=== PATIENT | male | born 1955 | race African-American/Black ===

== ENCOUNTER 2017-06-28 06:45 | Day surgery (SDC) | payer OTHER ==
[2017-06-28] VITALS (10 sets, daily range): BP systolic 109–145; BP diastolic 72–90
[~2017-06-28] VITALS: Ht 177.8 cm; Wt 74.8 kg
[~2017-06-28 06:45] MED LIST: ATORVASTATIN CA20 MG ORAL; DULERA 200 MCG/13 GM IH; NORCO 10-325 T1 EACH ORAL; NORVASC5 MG ORAL; ceFAZolin sod 1gm in NS 55ml IVPB ONE; celeBREX 200mg Cap **SURGERY PATIENTS ONLY ORAL ONE; oxyCONTIN 20mg tab ORAL ONE
--- NOTE | 2017-06-28 07:42 | Pre-Procedure Note/Attestation ---
Pre-Procedure Note/Attestation Complete Prior to Procedure Planned Procedure: right Procedure Narrative: shoulder arthroscopy, sad Indications for Procedure Pre-Operative Diagnosis: right shoulder impingement, rct Attestation I attest that I discussed the nature of the procedure; its benefits; risks and complications; and alternatives (and the risks and benefits of such alternatives ), prior to the procedure, with the patient (or the patient's legal employment program representative). I attest that, if there was a reasonable possibility of needing a blood transfusion, the patient (or the patient's legal employment program representative) was given the [facility] standardized written summary, pursuant to the Pasha Shadi Blood Safety Act ([place] Health and Safety Code # 1645, as amended). I attest that I re-evaluated the patient just prior to the surgery and that there has been no change in the patient's H&P, except as documented below: CHERRIE TAPIA Jun 28, 2017 07:42
--- NOTE | 2017-06-28 07:43 | Operative Note - PDOC ---
Operative Note Operative Note Pre-op Diagnosis: right shoulder impingement, rct Procedure: right shoulder sad, rc debridement Post-op Diagnosis: same as pre-op plus Operative Findings: consistent w/pre-op dx studies Anesthesia: MAC Specimen: none Complications: none Condition: stable Estimated Blood Loss: none Implant(s) used?: No CHERRIE TAPIA Jun 28, 2017 07:43
[2017-06-28] MEDS ORDERED: HYDROmorphone 1mg/ml Carpuject SUBQ PRN (07:45)
[2017-06-28] MEDS ORDERED: Norco 5mg/325mg tab ORAL PRN ×2 (07:45→08:45)
[2017-06-28] MEDS ORDERED: Tylenol #3 tab (300mg/30mg) ORAL PRN (07:45)
[2017-06-28] MEDS ORDERED: D5 1/2NS 1,000 ML IV SCH (07:45)
[2017-06-28] MEDS ORDERED: celeBREX 200mg Cap **SURGERY PATIENTS ONLY ORAL ONE (08:24)
[2017-06-28] MEDS ORDERED: Ropivacaine 5mg/ml Vial 30ml INJ ONE (08:38)
[2017-06-28] MEDS ORDERED: EPINEPHrine 1mg/1ml Amp ONE (08:38)
[2017-06-28] MEDS ORDERED: Bupivacaine 0.25% Inj 30ml INJ ONE (08:38)
[2017-06-28] MEDS ORDERED: DiphenhydrAMINE 50mg/ml Inj IVP PRN (08:45)
[2017-06-28] MEDS ORDERED: LORazepam Inj 2mg/ml 1ml IV PRN (08:45)
[2017-06-28] MEDS ORDERED: LR 1000ml 1,000 ML IVLG SCH (08:45)
[2017-06-28] MEDS ORDERED: Midazolam 2mg/2ml Inj IVP PRN (08:45)
[2017-06-28] MEDS ORDERED: Hydromorphone 0.5mg/0.5ml inj IVP PRN (08:45)
[2017-06-28] MEDS ORDERED: fentaNYL 100 mcg/2 mL IV PRN (08:45)
[2017-06-28] MEDS ORDERED: Ketorolac 30mg Inj IV PRN ×2 (08:45)
[2017-06-28] MEDS ORDERED: HYDROcodone/Acetamin 7.5/325 tab ORAL PRN (08:45)
[2017-06-28] MEDS ORDERED: oxyCODONE HCL/Acetaminophen 5/325mg ORAL PRN (08:45)
[2017-06-28] MEDS ORDERED: Atropine Inj 1mg/10ml Syr IV PRN (08:45)
[2017-06-28] MEDS ORDERED: Labetalol 5mg/ml 20ml vial IV PRN (08:45)
--- NOTE | 2017-06-28 08:45 | Anethesia Preoperative Eval ---
Anesthesia Pre-op PMH/ROS General Date of Evaluation: Jun 28, 2017 Time of Evaluation: 08:53 Anesthesiologist: Lida ASA Score: ASA 3 Mallampati Score Class I : Soft palate, uvula, fauces, pillars visible Class II: Soft palate, uvula, fauces visible Class III: Soft palate, base of uvula visible Class IV: Only hard plate visible Mallampati Classification: Class II Surgeon: Elieser Diagnosis: R Shoulder Pain Surgical Procedure: R Shoulder Arthroscopy Anesthesia History: none Social History: current smoker Family History: no anesthesia problems Allergies: Coded Allergies: No Known Allergies (Unverified , 06/27/17) Medications: see eMAR Past Medical History Cardiovascular: Reports: HTN Pulmonary: Reports: COPD Musculoskeletal/Integumentary: Reports: OA Anesthesia Pre-op Phys. Exam Physician Exam Last Vital Signs Date Time Temp Pulse Resp B/P (MAP) Pulse Ox O2 Delivery O2 Flow Rate FiO2 06/28/17 08:03 96.8 77 20 130/88 100 Room Air 96.8 Constitutional: NAD Neurologic: CN 2-12 intact Cardiovascular: RRR Respiratory: CTA Gastrointestinal: S/NT/ND Airway Exam Mallampati Score: Class II MO: full ROM: limited Teeth: missing Anesthesia Pre-op A/P Risk Assessment & Plan Assessment: ASA 3 Plan: GA, BIS Status Change Before Surgery: No Pre-Antibiotics Dru Grams Ancef IV Given Within 1 Hr of Incision: Yes Time Given: 09:21 Chuck Hilton MD Jun 28, 2017 08:45
--- NOTE | 2017-06-28 08:46 | Immediate Post-Op Evaluation ---
Immediate Post-Op Evalulation Immediate Post-Op Evalulation Procedure: R Shoulder Arthroscopy Date of Evaluation: Jun 28, 2017 Time of Evaluation: 10:45 IV Fluids: 800 LR Blood Products: 0 Estimated Blood Loss: 10 Urinary Output: 0 Blood Pressure Systolic: 121 Blood Pressure Diastolic: 72 Pulse Rate: 80 Respiratory Rate: 16 O2 Sat by Pulse Oximetry: 100 Temperature (Fahrenheit): 97.1 Pain Score (1-10): 1 Nausea: No Vomiting: No Complications 0 Patient Status: awake, reacts, patent, none Hydration Status: adequate Dru Grams Ancef IV Given Within 1 Hr of Incision: Yes Time Given: 09:21 Chuck Hilton MD Jun 28, 2017 08:46
--- NOTE | 2017-06-28 08:47 | 48 Hour Post Anesthesia Eval ---
Post Anesthesia Evaluation Procedure: R Shoulder Arthroscopy Date of Evaluation: Jun 28, 2017 Time of Evaluation: 12:03 Blood Pressure Systolic: 132 0: 98 Pulse Rate: 67 Respiratory Rate: 18 Temperature (Fahrenheit): 98.3 O2 Sat by Pulse Oximetry: 100 Airway: patent Nausea: No Vomiting: No Pain Intensity: 1 Hydration Status: adequate Cardiopulmonary Status: Stable Mental Status/LOC: patient returned to baseline Follow-up Care/Observations: 0 Post-Anesthesia Complications: 0 Follow-up care needed: ready to discharge Chuck Hilton MD Jun 28, 2017 08:47
[2017-06-28] MEDS ORDERED: Propofol 200mg/20ml IV ONE (09:00)
[2017-06-28] MEDS ORDERED: Alfentanil 2ml Inj ONE (09:00)
[2017-06-28] MEDS ORDERED: LR 1000ml ONE (09:00)
[2017-06-28] MEDS ORDERED: Lidocaine 1% MPF 10mg/ml 5ml ONE (09:00)
[2017-06-28] MEDS ORDERED: Dexamethasone 4mg/ml vial ONE (09:00)
[2017-06-28] MEDS ORDERED: Midazolam 2mg/2ml Inj ONE (09:00)
[2017-06-28] MEDS ORDERED: NS Irrig 2000ml IRRIG ONE (09:00)
--- NOTE | 2017-06-28 16:30 | Operative Note - Dictated ---
DATE OF OPERATION: 06/28/2017 PREOPERATIVE DIAGNOSES: 1. Right shoulder AC separation. 2. Right shoulder subscap/supraspinatus rotator cuff tear. 3. Right shoulder biceps tenosynovitis. 4. Impingement syndrome. POSTOPERATIVE DIAGNOSES: 1. Right shoulder AC separation. 2. Right shoulder subscap/supraspinatus rotator cuff tear. 3. Right shoulder biceps tenosynovitis. 4. Impingement syndrome. PROCEDURES: 1. Right shoulder diagnostic arthroscopy, intra-articular debridements. 2. Right shoulder arthroscopic subacromial decompression bursectomy. 3. Right shoulder rotator cuff repair. SURGEON: Dilip Mon M.D. ANESTHESIA: MAC with interscalene. INDICATION FOR PROCEDURE: The patient is a 62-year-old gentleman, who has had a significant injury to his right shoulder. He failed conservative treatment and elected to undergo right shoulder diagnostic arthroscopy, possible subacromial decompression bursectomy, rotator cuff repair based on the intraoperative findings. Risks, limitations, expectations, and complications of procedure were discussed in detail. All questions addressed. DESCRIPTION OF PROCEDURE: An informed consent was obtained. The patient was brought to the operating room where the patient was placed under interscalene general anesthesia. The patient was then carefully placed in beach-chair position. Right shoulder was prepped and draped in sterile manner. Time-out was performed. Portal sites were marked and injected with 0.25% Marcaine with epinephrine. Inferolateral stab incision was then made. Trocar was introduced into the glenohumeral joint. There was mild chondral damage in the inferior aspect of the glenoid. The anterior labrum appeared to be intact. The rotator interval was entered. The biceps tendon was intact. There was mild chondral damage in the inferior aspect of the glenoid. The anterior labrum appeared to be intact. The biceps tendon was subluxed into the shoulder and had some tenosynovitis, but no gross tearing. The undersurface of the supraspinatus had a partial tear. The anteromedial portal was established and an intra-articular debridement of the rotator cuff was performed. Once that was completed, the camera was placed in the subacromial space. There was acromial spur was identified. Acromioplasty was started from lateral to medial and completed from posterior to anterior. Once that was done, the bursectomy was carried out in the posterior axillary pouch. Once that was completed, the bursal side of the rotator cuff was evaluated. There was a tear along the rotator interval along the superior margin of the subscapularis. Given the rent along the supraspinatus/subscap through the rotator interval, two margin-convergence stitches were then placed to close down the rotator interval. Once that was done, the camera was removed. Portal sites were closed with 3-0 Monocryl sutures. Steri-Strips and a sterile dressing were applied. The patient was awoken and taken to recovery room with stable vital signs. ESTIMATED BLOOD LOSS: None. COMPLICATION: None. SPECIMENS: None. IMPLANTS: None. Dilip Mon M.D. DR: Elaina JOB#: [id number] CC: PETE
== END 2017-06-28 12:30 | disposition home or self-care (01) ==
LOC: SUR 06:45
DX: S43.101A Unspecified dislocation of right acromioclavicular joint, initial encounter (principal); M75.101 Unspecified rotator cuff tear or rupture of right shoulder, not specified as traumatic; M75.21 Bicipital tendinitis, right shoulder; M75.41 Impingement syndrome of right shoulder; X58.XXXA Exposure to other specified factors, initial encounter; Y93.9 Activity, unspecified; Y92.9 Unspecified place or not applicable; I10 Essential (primary) hypertension; J44.9 Chronic obstructive pulmonary disease, unspecified; M19.90 Unspecified osteoarthritis, unspecified site; F17.200 Nicotine dependence, unspecified, uncomplicated
CPT/HCPCS: 29823; 29826; 29827; J0171; J0690; J1100; J2250; J2405; J2704; J2795; J3490; J7120; 94003; 94150; C1713

== ENCOUNTER 2017-12-27 11:54 | Day surgery (SDC) | payer OTHER ==
--- NOTE | 2017-11-28 07:17 | Operative Note - PDOC ---
Operative Note Operative Note Pre-op Diagnosis: left ankle internal derangment Procedure: see op report Post-op Diagnosis: same as pre-op plus Operative Findings: consistent w/pre-op dx studies Anesthesia: MAC Specimen: none Complications: none Condition: stable Estimated Blood Loss: none Implant(s) used?: No Dilip Mon MD Nov 28, 2017 07:17
--- NOTE | 2017-11-28 07:17 | Pre-Procedure Note/Attestation ---
Pre-Procedure Note/Attestation Complete Prior to Procedure Planned Procedure: left Procedure Narrative: ankle arthroscopy, possible synovectomy Indications for Procedure Pre-Operative Diagnosis: left ankle internal derangment Attestation I attest that I discussed the nature of the procedure; its benefits; risks and complications; and alternatives (and the risks and benefits of such alternatives ), prior to the procedure, with the patient (or the patient's legal provider service representative). I attest that, if there was a reasonable possibility of needing a blood transfusion, the patient (or the patient's legal provider service representative) was given the [facility] standardized written summary, pursuant to the Pasha Shadi Blood Safety Act ([place] Health and Safety Code # 1645, as amended). I attest that I re-evaluated the patient just prior to the surgery and that there has been no change in the patient's H&P, except as documented below: Dilip Mon MD Nov 28, 2017 07:17
--- NOTE | 2017-12-13 07:24 | Pre-Procedure Note/Attestation ---
Pre-Procedure Note/Attestation Complete Prior to Procedure Planned Procedure: left Procedure Narrative: ankle arthroscopy, synovectomy Indications for Procedure Pre-Operative Diagnosis: left ankle internal derangment Attestation I attest that I discussed the nature of the procedure; its benefits; risks and complications; and alternatives (and the risks and benefits of such alternatives ), prior to the procedure, with the patient (or the patient's legal indirect sales representative). I attest that, if there was a reasonable possibility of needing a blood transfusion, the patient (or the patient's legal indirect sales representative) was given the [facility] standardized written summary, pursuant to the Pasha Newborn Blood Safety Act ([place] Health and Safety Code # 1645, as amended). I attest that I re-evaluated the patient just prior to the surgery and that there has been no change in the patient's H&P, except as documented below: Dilip Mon MD Dec 13, 2017 07:24
--- NOTE | 2017-12-13 07:24 | Operative Note - PDOC ---
Operative Note Operative Note Pre-op Diagnosis: left ankle internal derangment Procedure: see op report Post-op Diagnosis: same as pre-op plus Operative Findings: consistent w/pre-op dx studies Anesthesia: MAC Specimen: none Complications: none Condition: stable Estimated Blood Loss: none Implant(s) used?: No Dilip Mon MD Dec 13, 2017 07:24
[~2017-12-27] VITALS: Ht 177.8 cm; Wt 77.1 kg
[2017-12-27] VITALS (9 sets, daily range): BP systolic 135–163; BP diastolic 76–98
[~2017-12-27 11:54] MED LIST changes: +D5 1/2NS 1,000 ML IV SCH; +HYDROmorphone 1mg/ml Carpuject SUBQ PRN; +Ketorolac 30mg Inj ONE; +Lidocaine 1% MPF 10mg/ml 5ml ONE; +MELOXICAM15 MG PO; +Midazolam 2mg/2ml Inj ONE; +Norco 5mg/325mg tab ORAL PRN; +Propofol 200mg/20ml IV ONE; +TAMSULOSIN HCL0.4 MG ORAL; +Tylenol #3 tab (300mg/30mg) ORAL PRN; +ceFAZolin 1gm in D5W 55ml IVP ONE; +ceFAZolin 1gm in D5W 55ml IVP SCH; -ceFAZolin sod 1gm in NS 55ml IVPB ONE; +celeBREX 200mg Cap **SURGERY PATIENTS ONLY ORAL SCH; +fentaNYL 100 mcg/2 mL IV ONE; +oxyCONTIN 20mg tab ORAL SCH
[2017-12-27] MEDS ORDERED: oxyCONTIN 20mg tab ORAL ONE (12:28)
[2017-12-27] MEDS ORDERED: celeBREX 200mg Cap **SURGERY PATIENTS ONLY ORAL ONE (12:28)
[2017-12-27] MEDS ORDERED: Duramorph PF 5mg/10ml amp ONE (13:32)
[2017-12-27] MEDS ORDERED: Bupivacaine 0.5% Inj 30 ml vial INJ ONE ×2 (13:33→14:20)
[2017-12-27] MEDS ORDERED: Kenalog-40 1ml Vial ONE (13:33)
[2017-12-27] MEDS ORDERED: Lidocaine 1% 10mg/ml/EPI 0.01mg/ml 50ml INJ ONE (13:33)
[2017-12-27] MEDS ORDERED: Ketorolac 30mg Inj ONE (13:33)
--- NOTE | 2017-12-27 13:39 | Operative Note - PDOC ---
Operative Note Operative Note Pre-op Diagnosis: left ankle internal derangment Procedure: see op report Post-op Diagnosis: same as pre-op plus Operative Findings: consistent w/pre-op dx studies Anesthesia: MAC Specimen: none Complications: none Condition: stable Estimated Blood Loss: none Dilip Mon MD Dec 27, 2017 13:39
--- NOTE | 2017-12-27 13:39 | Pre-Procedure Note/Attestation ---
Pre-Procedure Note/Attestation Complete Prior to Procedure Planned Procedure: left Procedure Narrative: ankle arthroscopy, possible synovectomy, chondraplasty Indications for Procedure Pre-Operative Diagnosis: left ankle internal derangment Attestation I attest that I discussed the nature of the procedure; its benefits; risks and complications; and alternatives (and the risks and benefits of such alternatives ), prior to the procedure, with the patient (or the patient's legal surgical device sales representative). I attest that, if there was a reasonable possibility of needing a blood transfusion, the patient (or the patient's legal surgical device sales representative) was given the [facility] standardized written summary, pursuant to the Pasha Shadi Blood Safety Act ([place] Health and Safety Code # 1645, as amended). I attest that I re-evaluated the patient just prior to the surgery and that there has been no change in the patient's H&P, except as documented below: Dilip Mon MD Dec 27, 2017 13:39
[2017-12-27] MEDS ORDERED: Norco 5mg/325mg tab ORAL PRN (13:45)
[2017-12-27] MEDS ORDERED: HYDROmorphone 1mg/ml Carpuject SUBQ PRN (13:45)
[2017-12-27] MEDS ORDERED: Tylenol #3 tab (300mg/30mg) ORAL PRN (13:45)
[2017-12-27] MEDS ORDERED: D5 1/2NS 1,000 ML IV SCH (13:45)
[2017-12-27] MEDS ORDERED: LR 1000ml ONE (14:00)
[2017-12-27] MEDS ORDERED: NS Irrig 1000ml ONE (14:00)
[2017-12-27] MEDS ORDERED: Kenalog-40 1ml Vial INJ ONE (14:20)
[2017-12-27] MEDS ORDERED: Ketorolac 30mg Inj IM ONE (14:20)
[2017-12-27] MEDS ORDERED: Duramorph PF 5mg/10ml amp EPIDUR ONE (14:20)
[2017-12-27] MEDS ORDERED: NS Irrig 4000ml IRRIG ONE (14:20)
[2017-12-27] MEDS ORDERED: Lidocaine 1% 10mg/ml/Epi 0.005mg/ml 30ml vial INJ ONE (14:20)
[2017-12-27] MEDS ORDERED: LR 1000ml 1,000 ML IVLG SCH (14:26)
--- NOTE | 2017-12-27 14:26 | Anethesia Preoperative Eval ---
Anesthesia Pre-op PMH/ROS General Date of Evaluation: Dec 27, 2017 Time of Evaluation: 13:36 Anesthesiologist: Kristen ASA Score: ASA 3 Mallampati Score Class I : Soft palate, uvula, fauces, pillars visible Class II: Soft palate, uvula, fauces visible Class III: Soft palate, base of uvula visible Class IV: Only hard plate visible Mallampati Classification: Class II Surgeon: Elieser Diagnosis: L ankle pain Surgical Procedure: L ankle scope Anesthesia History: none Social History: smoking Family History: no anesthesia problems Allergies: Coded Allergies: No Known Allergies (Unverified , 09/26/17) Medications: see eMAR Past Medical History Cardiovascular: Reports: HTN Pulmonary: Reports: COPD; Denies: asthma, DELORES, other Gastrointestinal/Genitourinary: Reports: GERD; Denies: CRI, ESRD, other Neurologic/Psychiatric: Reports: other - chronic pain; Denies: dementia, CVA, depression/anxiety, TIA Endocrine: Denies: DM, hypothyroidism, steroids, other HEENT: Denies: cataract (L), cataract (R), glaucoma, [place]AMI (L), [place] (R), other Hematology/Immune: Denies: anemia, DVT, bleeding disorder, other Musculoskeletal/Integumentary: Reports: DJD; Denies: OA, RA, DDD, edema, other PMH Narrative: as above PSxH Narrative: Shoulder , knee arthroscopy Anesthesia Pre-op Phys. Exam Physician Exam Last Vital Signs Date Time Temp Pulse Resp B/P (MAP) Pulse Ox O2 Delivery O2 Flow Rate FiO2 12/27/17 12:37 Room Air 12/27/17 12:36 98.4 95 18 157/96 (116) 100 98.4 Constitutional: NAD Neurologic: CN 2-12 intact Cardiovascular: RRR, no M/R/G Respiratory: other - some wheezing bilaterally Gastrointestinal: S/NT/ND Airway Exam Mallampati Score: Class II MO: limited Neck: stiff ROM: limited Teeth: missing, broken Dentures: no upper, no lower Anesthesia Pre-op A/P Labs see chart Studies Pre-op Studies: EKG - SR Risk Assessment & Plan Assessment: ASA 3 Plan: GA with LMA Status Change Before Surgery: No Pre-Antibiotics Drug: Ancef 1 gr. Given Within 1 Hr of Incision: Yes Time Given: 14:10 Tai Peterson MD Dec 27, 2017 14:26
[2017-12-27] MEDS ORDERED: fentaNYL 100 mcg/2 mL IV PRN (14:30)
[2017-12-27] MEDS ORDERED: Meperidine 50mg/ml Inj(FOR RIGORS ONLY) IV PRN (14:30)
[2017-12-27] MEDS ORDERED: Ketorolac 30mg Inj IV PRN (14:30)
[2017-12-27] MEDS ORDERED: DiphenhydrAMINE 50mg/ml Inj IVP PRN (14:30)
--- NOTE | 2017-12-27 15:03 | Immediate Post-Op Evaluation ---
Immediate Post-Op Evalulation Immediate Post-Op Evalulation Procedure: L ankle arthroscopy with debridement Date of Evaluation: Dec 27, 2017 Time of Evaluation: 15:02 IV Fluids: 1000 Blood Products: none Estimated Blood Loss: min Urinary Output: none Blood Pressure Systolic: 148 Blood Pressure Diastolic: 96 Pulse Rate: 86 Respiratory Rate: 20 O2 Sat by Pulse Oximetry: 99 Temperature (Fahrenheit): 97.7 Pain Score (1-10): 2 Nausea: No Vomiting: No Complications none Patient Status: reacts, patent, none Hydration Status: adequate Tai Peterson MD Dec 27, 2017 15:03
--- NOTE | 2017-12-27 16:22 | 48 Hour Post Anesthesia Eval ---
Post Anesthesia Evaluation Procedure: L ankle arthroscopy with debridement Date of Evaluation: Dec 27, 2017 Time of Evaluation: 16:21 Blood Pressure Systolic: 142 0: 84 Pulse Rate: 76 Respiratory Rate: 16 Temperature (Fahrenheit): 97.8 O2 Sat by Pulse Oximetry: 98 Airway: patent Nausea: No Vomiting: No Pain Intensity: 2 Hydration Status: adequate Cardiopulmonary Status: stable Mental Status/LOC: patient returned to baseline Follow-up Care/Observations: n/a Post-Anesthesia Complications: none Follow-up care needed: ready to discharge Tai Peterson MD Dec 27, 2017 16:22
--- NOTE | 2017-12-27 23:30 | Operative Note - Dictated ---
DATE OF OPERATION: 12/27/2017 PREOPERATIVE DIAGNOSES: 1. Left ankle lateral malleolus fracture. 2. Left ankle internal derangement with chondral damage, possible soft tissue impingement syndrome. POSTOPERATIVE DIAGNOSES: 1. Left ankle lateral malleolus fracture. 2. Left ankle internal derangement with chondral damage, possible soft tissue impingement syndrome. PROCEDURE: 1. Left ankle diagnostic arthroscopy. 2. Left ankle synovectomy. SURGEON: Dilip Mon M.D. ANESTHESIA: General. INDICATION FOR PROCEDURE: The patient is a pleasant gentleman, who had a significant injury to left ankle. He had continued pain despite conservative treatment. He elected to undergo left ankle arthroscopy. Based on intraoperative findings, the patient would be for possible chondroplasty, synovectomy. Risks, limitations, expectations, and complications of the procedure were discussed in detail. All questions were addressed. DESCRIPTION OF PROCEDURE: After informed consent was obtained, the patient was brought to the operating room. The patient was placed under general anesthesia. Left leg was prepped and draped in sterile manner. Time-out was performed. was then placed in the anterolateral portion of the ankle and the ankle joint was infused with mL of 0.25% Marcaine plain. The skin was incised. Blunt dissection into the ankle mortise was performed and trocar introduced into the ankle joint. Through an outside-in technique, an anterolateral portal was established. Synovectomy of the synovial tissue along the lateral and extending into the lateral gutter was performed. Once that was done, the lateral compartment of the ankle was evaluated. There were no loose bodies in the lateral gutter. There was some mild chondral damage along the talus. There were no intra-articular loose bodies. Once the synovectomy was completed, the camera was placed in the anteromedial border. Synovectomy extending into the medial gutter was performed. Once that was done, the instruments were removed. Portal sites were closed with 3-0 Monocryl sutures. Compression dressing was applied. The patient was awoken and taken to recovery room with stable vital signs. ESTIMATED BLOOD LOSS: None. COMPLICATIONS: None. SPECIMENS: None. IMPLANTS: None. Dilip Mon M.D. DR: Elaina JOB#: [id number] CC: PETE
== END 2017-12-27 16:45 | disposition home or self-care (01) ==
LOC: SUR 11:54
DX: M24.872 Other specific joint derangements of left ankle, not elsewhere classified (principal); S82.62XA Displaced fracture of lateral malleolus of left fibula, initial encounter for closed fracture; E78.5 Hyperlipidemia, unspecified; J44.9 Chronic obstructive pulmonary disease, unspecified; N40.0 Benign prostatic hyperplasia without lower urinary tract symptoms; F17.210 Nicotine dependence, cigarettes, uncomplicated; M19.90 Unspecified osteoarthritis, unspecified site; I10 Essential (primary) hypertension; K21.9 Gastro-esophageal reflux disease without esophagitis; G89.29 Other chronic pain
CPT/HCPCS: 29895; J0690; J1885; J2250; J2704; J3010; J3301; J3490; J7120; 94003; 94150